=== PATIENT | female | born 1975 | race Caucasian/White ===

== ENCOUNTER 2018-09-28 22:47 | Inpatient (IN) | payer OTHER ==
[~2018-09-28] VITALS: Ht 157.5 cm; Wt 86.5 kg
[2018-09-28 23:14] LABS: BASOPHILS % (AUTO) 0.8 % (0.0-2.0); EOSINOPHILS % (AUTO) 2.4 % (1.0-6.0); HEMOGLOBIN 14.1 g/dL (12.0-16.0); LYMPHOCYTES # (AUTO) 4.6 K/uL (1.0-4.8); LYMPHOCYTES % (AUTO) 33.7 % (22.0-44.0); MEAN CORPUSCULAR HEMOGLOBIN 30.7 pg (26.0-34.0); MEAN CORPUSCULAR HGB CONC 33.7 G/dL (31.0-37.0); MEAN CORPUSCULAR VOLUME 91 fL (80-100); MONOCYTES # (AUTO) 1.1 K/uL (0.1-1.0); MONOCYTES % (AUTO) 8.2 % (2.0-9.0); NEUTROPHILS # (AUTO) 7.5 K/uL (1.8-7.7); NEUTROPHILS % (AUTO) 54.9 % (40.0-70.0); PLATELET COUNT (AUTO) 310 K/uL (150-450); RED CELL DISTRIBUTION WIDTH 13.2 % (11.5-14.5)
[2018-09-28] MEDS ORDERED: SODIUM CHLORIDE 0.9% 100 ML ONE (23:17)
[2018-09-28] MEDS ORDERED: IOVERSOL 320 MG/ML 100 ML VIAL ONE (23:17)
[2018-09-28] MEDS ORDERED: LORATADINE PO (23:20)
[2018-09-28] MEDS ORDERED: NAPROXEN PO (23:20)
[2018-09-28] MEDS ORDERED: ACETAMINOPHEN PO (23:20)
[2018-09-28] MEDS ORDERED: cough medicine PO (23:20)
[2018-09-28] MEDS ORDERED: [UNRECOGNIZED DRUG - OTHER] PO (23:20)
[2018-09-28 23:26] LABS: PROTHROMBIN TIME 10.1 SEC (9.4-11.6)
[2018-09-28 23:30] LABS: ANION GAP 6 mmol/L (8-16); CALCIUM, TOTAL 8.6 mg/dL (8.8-10.5); CARBON DIOXIDE 28 mmol/L (22-29); CHLORIDE 102 mmol/L (98-107); CREATININE 0.62 mg/dL (0.60-1.30); GLOMERULAR FILTR. RATE CALC > 60 mL/min (>60); GLUCOSE,RANDOM 116 mg/dL (70-110); POTASSIUM 3.8 mmol/L (3.5-5.1); SODIUM SERUM 136 mmol/L (136-145); UREA NITROGEN, BLOOD 14 mg/dL (7-18)
[2018-09-28] MEDS ORDERED: WATER FOR INJECTION STERILE IV ONE ×2 (23:30)
[2018-09-28] MEDS ORDERED: ALTEPLASE IV ONE ×2 (23:30)
[2018-09-28] MEDS ORDERED: ALTEPLASE PER STROKE PROTOCOL CLINICAL ONE (23:30)
[2018-09-28] MEDS ORDERED: SODIUM CHLORIDE 0.9% 250 ML IV ONE (23:30)
[2018-09-28 23:43] LABS: ALANINE AMINOTRANSFERASE 21 U/L (12-78); ALBUMIN 3.6 g/dL (3.4-5.0); ALKALINE PHOSPHATASE 76 U/L (46-116); ASPARTATE AMINOTRANSFERASE 16 U/L (15-37); BILIRUBIN,TOTAL 0.2 mg/dL (0.1-1.0); HCG,QUANTITATIVE < 1 mIU/mL (0-6); TOTAL PROTEIN, SERUM 6.7 g/dL (6.4-8.2)
[2018-09-29] VITALS (28 sets, daily range): BP systolic 94–155; BP diastolic 58–115
[2018-09-29] MEDS ORDERED: IOVERSOL 320 MG/ML 50 ML VIAL ONE (00:16)
[2018-09-29] MEDS ORDERED: SODIUM CHLORIDE 0.9% 100 ML ONE (00:17)
[2018-09-29] MEDS ORDERED: SODIUM CHLORIDE 0.9% 1,000 ML IV ONE (01:15)
[2018-09-29] MEDS ORDERED: LORazepam 2 MG/ML VIAL IVP ONE (02:15)
[2018-09-29 07:13] LABS: HEMOGLOBIN A1C 5.5 % (4.5-6.2)
[2018-09-29 07:21] LABS: PROTHROMBIN TIME 10.2 SEC (9.4-11.6)
[2018-09-29 07:29] LABS: ANION GAP 8 mmol/L (8-16); CALCIUM, TOTAL 8.3 mg/dL (8.8-10.5); CARBON DIOXIDE 24 mmol/L (22-29); CHLORIDE 105 mmol/L (98-107); CHOL/HDL RATIO 3.4 (3.9-5.7); CHOLESTEROL 134 mg/dL (131-200); CREATININE 0.43 mg/dL (0.60-1.30); GLOMERULAR FILTR. RATE CALC > 60 mL/min (>60); GLUCOSE,RANDOM 107 mg/dL (70-110); HDL CHOLESTEROL 40 mg/dL (40-60); LDL CHOL (CALC.) 77 mg/dL (0-130); POTASSIUM 3.8 mmol/L (3.5-5.1); SODIUM SERUM 137 mmol/L (136-145); TRIGLYCERIDES 83 mg/dL (15-150); UREA NITROGEN, BLOOD 9 mg/dL (7-18)
[2018-09-29 07:34] LABS: BASOPHILS % (AUTO) 0.4 % (0.0-2.0); EOSINOPHILS % (AUTO) 0.5 % (1.0-6.0); HEMATOCRIT 42.7 % (36-46); HEMOGLOBIN 14.4 g/dL (12.0-16.0); LYMPHOCYTES # (AUTO) 2.3 K/uL (1.0-4.8); LYMPHOCYTES % (AUTO) 17.6 % (22.0-44.0); MEAN CORPUSCULAR HEMOGLOBIN 31.3 pg (26.0-34.0); MEAN CORPUSCULAR HGB CONC 33.6 G/dL (31.0-37.0); MEAN CORPUSCULAR VOLUME 93 fL (80-100); MONOCYTES # (AUTO) 0.9 K/uL (0.1-1.0); MONOCYTES % (AUTO) 6.8 % (2.0-9.0); NEUTROPHILS # (AUTO) 9.9 K/uL (1.8-7.7); NEUTROPHILS % (AUTO) 74.7 % (40.0-70.0); PLATELET COUNT (AUTO) 293 K/uL (150-450); RED BLOOD CELL COUNT(AUTO) 4.59 MIL/uL (4.00-5.20); RED CELL DISTRIBUTION WIDTH 13.2 % (11.5-14.5)
[2018-09-29] MEDS: DEXTROSE 5%-0.45% SODIUM CHL 1,000 ML IV SCH ×2 (09:18→21:50)
[2018-09-29 10:28] LABS: APPEARANCE,URINE CLEAR (CLEAR); BILIRUBIN,URINE NEGATIVE (NEGATIVE); GLUCOSE, URINE (UA) NEGATIVE (NEGATIVE); KETONES,URINE NEGATIVE (NEGATIVE); LEUKOCYTE ESTERASE ,URINE NEGATIVE (NEGATIVE); NITRATE,URINE NEGATIVE (NEGATIVE); OCCULT BLOOD,URINE NEGATIVE (NEGATIVE); PROTEIN,URINE NEGATIVE (NEGATIVE); UROBILINOGEN,URINE 0.2 mg/dL (<=1.0)
[2018-09-29 10:40] LABS: BACTERIA,URINE Rare /HPF (None Seen); RBC,URINE None Seen /HPF (0-2); SQUAMOUS EPITHELIAL CELL,UR Moderate /LPF (None Seen); WBC,URINE None Seen /HPF (0-5)
[2018-09-29 10:56] LABS: AMPHET/METH SCREEN,URINE NEGATIVE (NEGATIVE); BARBITURATE SCREEN, URINE NEGATIVE (NEGATIVE); BENZODIAZEPINES SCREEN,URINE NEGATIVE (NEGATIVE); CANNABINOID SCREEN,URINE NEGATIVE (NEGATIVE); COCAINE SCREEN,URINE NEGATIVE (NEGATIVE); METHADONE SCREEN, URINE NEGATIVE (NEGATIVE); OPIATE SCREEN,URINE NEGATIVE (NEGATIVE); PHENCYCLIDINE SCREEN,URINE NEGATIVE (NEGATIVE)
[2018-09-29] MEDS: ACETAMINOPHEN 325 MG TABLET PO PRN (20:01)
[2018-09-29] MEDS: ATORVASTATIN CALCIUM 20 MG TABLET PO SCH (21:24)
[2018-09-30] VITALS (18 sets, daily range): BP systolic 109–160; BP diastolic 57–139
[2018-09-30] MEDS: DEXTROSE 5%-0.45% SODIUM CHL 1,000 ML IV SCH (03:43)
[2018-09-30] MEDS: ACETAMINOPHEN 325 MG TABLET PO PRN (04:15)
[2018-09-30 04:40] LABS: BASOPHILS % (AUTO) 0.6 % (0.0-2.0); HEMATOCRIT 43.3 % (36-46); HEMOGLOBIN 14.6 g/dL (12.0-16.0); LYMPHOCYTES # (AUTO) 3.4 K/uL (1.0-4.8); LYMPHOCYTES % (AUTO) 24.1 % (22.0-44.0); MEAN CORPUSCULAR HEMOGLOBIN 31.3 pg (26.0-34.0); MEAN CORPUSCULAR HGB CONC 33.7 G/dL (31.0-37.0); MEAN CORPUSCULAR VOLUME 93 fL (80-100); MONOCYTES # (AUTO) 0.8 K/uL (0.1-1.0); MONOCYTES % (AUTO) 5.5 % (2.0-9.0); NEUTROPHILS # (AUTO) 9.5 K/uL (1.8-7.7); NEUTROPHILS % (AUTO) 67.8 % (40.0-70.0); PLATELET COUNT (AUTO) 288 K/uL (150-450); RED BLOOD CELL COUNT(AUTO) 4.65 MIL/uL (4.00-5.20); RED CELL DISTRIBUTION WIDTH 13.3 % (11.5-14.5)
[2018-09-30 04:59] LABS: ANION GAP 8 mmol/L (8-16); CALCIUM, TOTAL 8.7 mg/dL (8.8-10.5); CARBON DIOXIDE 25 mmol/L (22-29); CHLORIDE 105 mmol/L (98-107); CREATININE 0.56 mg/dL (0.60-1.30); GLOMERULAR FILTR. RATE CALC > 60 mL/min (>60); GLUCOSE,RANDOM 112 mg/dL (70-110); POTASSIUM 3.4 mmol/L (3.5-5.1); SODIUM SERUM 138 mmol/L (136-145); UREA NITROGEN, BLOOD 6 mg/dL (7-18)
[2018-09-30 05:29] LABS: THYROID STIMULATING HORMONE 1.19 uIU/mL (0.36-3.74)
[2018-09-30] MEDS: ASPIRIN 81 MG CHEWABLE TABLET PO SCH (05:53)
[2018-09-30] MEDS ORDERED: GADOBUTROL 1 MMOL/ML 10 ML VIAL IVP ONE (09:24)
[2018-09-30] MEDS ORDERED: POTASSIUM CHLORIDE 20 MEQ ER TABLET PO ONE (15:45)
[2018-09-30] MEDS: GuaiFENesin/D-METHORPHAN [SUGAR-FREE] 200-20MG/10 ML SYRUP UDCUP PO PRN (16:44)
[2018-09-30] MEDS: ATORVASTATIN CALCIUM 20 MG TABLET PO SCH (20:30)
[2018-10-01] VITALS (8 sets, daily range): BP systolic 109–151; BP diastolic 42–83
[2018-10-01] MEDS: GuaiFENesin/D-METHORPHAN [SUGAR-FREE] 200-20MG/10 ML SYRUP UDCUP PO PRN ×3 (03:02→21:36)
[2018-10-01] MEDS: ACETAMINOPHEN 325 MG TABLET PO PRN ×3 (03:02→20:20)
[2018-10-01] MEDS: ASPIRIN 81 MG CHEWABLE TABLET PO SCH (05:54)
[2018-10-01] MEDS: ATORVASTATIN CALCIUM 20 MG TABLET PO SCH (20:20)
[2018-10-02 04:25] VITALS: BP 116/63
[2018-10-02] MEDS: ASPIRIN 81 MG CHEWABLE TABLET PO SCH (05:01)
[2018-10-02 07:19] VITALS: BP 111/71
[2018-10-02 11:30] VITALS: BP 105/58
[2018-10-02 15:28] VITALS: BP 131/65
[2018-10-02] MEDS: ATORVASTATIN CALCIUM 20 MG TABLET PO SCH (19:55)
[2018-10-02 21:13] VITALS: BP 123/91
[2018-10-02] MEDS: ACETAMINOPHEN 325 MG TABLET PO PRN (21:45)
[2018-10-03 00:17] VITALS: BP 104/71
[2018-10-03 04:38] VITALS: BP 116/74
[2018-10-03] MEDS: ASPIRIN 81 MG CHEWABLE TABLET PO SCH (06:02)
[2018-10-03 07:32] VITALS: BP 110/53
[2018-10-03 08:50] LABS: GLUCOMETER DEV NAME(LOC) 5S.2; GLUCOSE,POINT OF CARE 104 MG/DL (70-110)
[2018-10-03] MEDS: ACETAMINOPHEN 325 MG TABLET PO PRN (11:01)
[2018-10-03 11:21] VITALS: BP 116/62
[2018-10-03] MEDS ORDERED: ASPI81 PO (19:01)
[2018-10-03] MEDS ORDERED: ATOR20TA86 PO (19:01)
[2018-10-03] MEDS: ATORVASTATIN CALCIUM 20 MG TABLET PO SCH (19:30)
== END 2018-10-03 19:45 | disposition home or self-care (01) | DRG 62 ==
LOC: EMS 22:48 → ICU 09-29 00:30 → 5S 09-30 18:51
PROVIDERS: ADMIT Hospitalist; ATTEND Hospitalist
DX: I63.511 Cerebral infarction due to unspecified occlusion or stenosis of right middle cerebral artery (principal); G81.94 Hemiplegia, unspecified affecting left nondominant side; I10 Essential (primary) hypertension; I77.6 Arteritis, unspecified; J00 Acute nasopharyngitis [common cold]; Z79.82 Long term (current) use of aspirin; Z23 Encounter for immunization
CPT/HCPCS: 37195; 51702; 70450; 70496; 70544; 70549; 70551; 80307; 82948; 83036; 83735; 84132; 84443; 85651; 86038; 86850; 86900; 86901; 87081; 92507; 92610; 93005; 93306; 97112; 97116; 97161; 97165; 99291; A9585; G0378; J2060; J2997; J7030; J7050